=== PATIENT | male | born 1970 | race Two or more races ===

== ENCOUNTER 2017-08-31 10:41 | Outpatient (CLI) | payer OTHER | END 2017-08-31 10:56 | disposition home or self-care (01) | LOC: LAB 10:41 | DX: M12.88 Other specific arthropathies, not elsewhere classified, other specified site (principal); M19.90 Unspecified osteoarthritis, unspecified site ==

== ENCOUNTER 2017-08-31 12:00 | Outpatient (CLI) | payer OTHER | END 2017-08-31 14:40 | disposition home or self-care (01) | LOC: RAD 12:00 | DX: M12.9 Arthropathy, unspecified (principal); M19.90 Unspecified osteoarthritis, unspecified site ==

== ENCOUNTER → 2017-09-25 | Outpatient (CLI) | payer OTHER | END | disposition home or self-care (01) | LOC: NUCLEAR 10:00 | DX: M12.9 Arthropathy, unspecified (principal); M19.90 Unspecified osteoarthritis, unspecified site | CPT/HCPCS: 78315; A9503 ==

== ENCOUNTER 2023-03-26 10:50 | Outpatient (CLI) | payer OTHER | END 2023-03-26 11:00 | disposition home or self-care (01) | LOC: SONOGRAMA 10:50 | PROVIDERS: ATTEND Pathology Anatomic Pathology & Clinical Pathology | DX: D36.0 Benign neoplasm of lymph nodes (principal); R22.1 Localized swelling, mass and lump, neck ==